=== PATIENT | male | born 1965 | race Caucasian/White ===

== ENCOUNTER 2018-06-28 00:04 | Day surgery (SDC) | payer OTHER ==
[~2018-06-28] VITALS: Ht 177.8 cm; Wt 93.9 kg
[~2018-06-28 00:04] MED LIST: ACE500 PO; CLOB59LO3 TP; GUAI100G4 PO; IBU200 PO; IBUP-136 PO; LORA5TAB16 PO; PSEU-75 PO; [UNRECOGNIZED DRUG - OTHER]
[2018-06-28] MEDS ORDERED: PROPOFOL EMUL(*) 10MG/ML 20 ML 20 ML ONE (07:06)
[2018-06-28 09:18] VITALS: BP 132/83
[2018-06-28] MEDS ORDERED: LIDOCAINE/SOD BICARB 8.4% SYR ID ONE (09:40)
[2018-06-28] MEDS ORDERED: NORMOSOL R SOLN(*) 1000 ML BAG 1,000 ML IV PRN (09:40)
[2018-06-28 11:18] VITALS: BP 97/75
--- NOTE | 2018-06-28 11:24 | Short(Outpt) Discharge Summary ---
Discharge Summary Reason for Hosp/Final Diag: (1) Colon cancer screening Status: Chronic Departure Discharge to: Home, Self Care Discharge Instructions Home Meds Reported Medications Ibuprofen (IBUPROFEN) Unknown Strength Capsule, PO Q6H, CAPSULE 05/26/18 Loratadine (CLARITIN) Unknown Strength Tab.rapdis, PO 05/26/18 Guaifenesin (MUCINEX) Unknown Strength Gran.pack, PO 05/26/18 Clobetasol Propionate (CLOBEX) Unknown Strength Lotion, TP 3XW 05/26/18 Diet: Regular Activity: As Tolerated Special Instructions: Your colonoscopy was completed without any problems and your prep was excellent (Good Job!!). I didn't find any inflammation, polyps, cancers, or other abnormaities; your colonoscopy was completely normal. I recommend that you have another colonoscopy in 10 years. LAMIN ABBOTT MD Jun 28, 2018 11:24
[2018-06-28 11:30] VITALS: BP 119/95
[2018-06-28 11:52] VITALS: BP 102/68
[2018-06-28 11:54] VITALS: BP 98/76
[2018-06-28 11:55] VITALS: BP 98/76
== END 2018-06-28 12:04 | disposition home or self-care (01) ==
LOC: OR 00:04
PROVIDERS: ATTEND Surgery
DX: Z12.11 Encounter for screening for malignant neoplasm of colon (principal)
CPT/HCPCS: 00812; 45378; J2704